=== PATIENT | female | born 1985 | race Caucasian/White ===

== ENCOUNTER 2017-09-16 09:04 | Emergency (ER) | payer MEDICAID ==
[~2017-09-16] VITALS: Ht 160 cm; Wt 107.7 kg
[2017-09-16] MEDS ORDERED: METO25 PO (09:19)
[2017-09-16] MEDS ORDERED: INSLAN SQ (09:19)
[2017-09-16] MEDS ORDERED: METF500T6 PO (09:19)
[2017-09-16] MEDS ORDERED: INSNOV SQ (09:19)
[2017-09-16 09:22] LABS: GLUCOSE,POINT OF CARE 129 MG/DL (70-110)
[2017-09-16 10:33] LABS: BASOPHILS % (AUTO) 1.1 % (0.0-2.0); EOSINOPHILS % (AUTO) 2.9 % (1.0-6.0); HEMATOCRIT 39.2 % (36-46); HEMOGLOBIN 14.1 g/dL (12.0-16.0); LYMPHOCYTES # (AUTO) 3.3 K/uL (1.0-4.8); LYMPHOCYTES % (AUTO) 32.9 % (22.0-44.0); MEAN CORPUSCULAR HEMOGLOBIN 28.3 pg (26.0-34.0); MEAN CORPUSCULAR HGB CONC 35.9 G/dL (31.0-37.0); MEAN CORPUSCULAR VOLUME 79 fL (80-100); MONOCYTES # (AUTO) 0.5 K/uL (0.1-1.0); MONOCYTES % (AUTO) 4.9 % (2.0-9.0); NEUTROPHILS # (AUTO) 5.9 K/uL (1.8-7.7); NEUTROPHILS % (AUTO) 58.2 % (40.0-70.0); PLATELET COUNT (AUTO) 319 K/uL (150-450); RED BLOOD CELL COUNT(AUTO) 4.98 MIL/uL (4.00-5.20); RED CELL DISTRIBUTION WIDTH 13.9 % (11.5-14.5)
[2017-09-16 10:48] LABS: ANION GAP 11 mmol/L (8-16); CARBON DIOXIDE 24 mmol/L (22-29); CHLORIDE 100 mmol/L (98-107); CREATININE 0.52 mg/dL (0.60-1.30); GLOMERULAR FILTR. RATE CALC > 60 mL/min (>60); GLUCOSE,RANDOM 141 mg/dL (70-110); POTASSIUM 3.8 mmol/L (3.5-5.1); SODIUM SERUM 135 mmol/L (136-145); UREA NITROGEN, BLOOD 7 mg/dL (7-18)
[2017-09-16 11:03] VITALS: BP 157/99
[2017-09-16 11:15] LABS: ALANINE AMINOTRANSFERASE 33 U/L (12-78); ALBUMIN 3.5 g/dL (3.4-5.0); ALKALINE PHOSPHATASE 62 U/L (46-116); ASPARTATE AMINOTRANSFERASE 20 U/L (15-37); BILIRUBIN,TOTAL 0.4 mg/dL (0.1-1.0); HCG,QUANTITATIVE 7398 mIU/mL (0-6)
== END 2017-09-16 12:15 | disposition home or self-care (01) ==
LOC: EMS 09:07
DX: O20.0 Threatened abortion (principal); I10 Essential (primary) hypertension; E11.9 Type 2 diabetes mellitus without complications; Z3A.01 Less than 8 weeks gestation of pregnancy; Z79.4 Long term (current) use of insulin
CPT/HCPCS: 76801; 76817; 86901; 99285